=== PATIENT | male | born 1950 | race Native Hawaiian/Other Pacific Islander ===

== ENCOUNTER 2017-07-03 13:54 | Outpatient (CLI) | payer OTHER ==
[2017-07-03 14:51] LABS: PLATELET COUNT 601 K/uL (142-355)
[2017-07-03 15:17] LABS: POTASSIUM 4.9 mmol/L (3.6-5.2)
== END 2017-07-03 18:21 | disposition home or self-care (01) ==
LOC: LAB 13:54
PROVIDERS: Nurse Practitioner Family
DX: F41.8 Other specified anxiety disorders (principal); R53.81 Other malaise; R53.83 Other fatigue; Z79.899 Other long term (current) drug therapy; Z51.81 Encounter for therapeutic drug level monitoring
CPT/HCPCS: 80053; 80061; 83036; 84154; 84436; 84443; 85027